=== PATIENT | male | born 1955 | race Caucasian/White ===

== ENCOUNTER → 2019-08-27 12:52 | Outpatient (CLI) | payer OTHER, SELFPAY ==
--- NOTE | 2019-08-27 12:56 | DI.RAD.S_ITS ---
PROCEDURE: XR KNEE RT 3V INDICATIONS: Knee pain TECHNIQUE: 3 views of the knee were acquired. COMPARISON: [facility], , KNEE 1-2 VIEWS RIGHT, 07/24/2008, 10:18. FINDINGS: Bones: No fractures or dislocations. No suspicious bony lesions. Scattered degenerative subchondral sclerosis and spurring. There mild-moderate narrowing of the medial joint space. Small joint effusion IMPRESSION: Mild-moderate joint degeneration, progressed since 07/24/08. Small joint effusion Dictated by: Sarbjit Bravo M.D. on 08/27/2019 at 16:25 Approved by: Sarbjit Bravo M.D. on 08/27/2019 at 16:31
== END ==
PROVIDERS: Family Provider Family Medicine; PCP Family Medicine; Referring Provider Family Medicine; Visit Provider Family Medicine
DX: M25.561 Pain in right knee (principal); M17.11 Unilateral primary osteoarthritis, right knee; M25.461 Effusion, right knee
CPT/HCPCS: 73562

== ENCOUNTER 2020-06-16 15:15 | Emergency (ER) | payer MEDICARE, SELFPAY ==
[2020-06-16 15:17] VITALS: BP 141/100; PULSE 103; RESP 22; TEMP 36.4; O2SAT 99
--- NOTE | 2020-06-16 17:53 | PC.NURSE ---
Pt reports infested with fleas x 1 month and thinks he obtained them from his animals. Saw Dr Flores recently and [employer] at [facility] and given prometherin cream and used full body x 2. states larvae is hatching from his skin, he has witnessed it, and it crawls out of his nose and into his eyeballs into his tear ducts and its very annoying noted to have multiple small pinpoint red bites on his abdomen. states he has been using hydrocortisone cream for the topical discomfort
--- NOTE | 2020-06-16 18:17 | ED_ITS ---
HPI - Skin/Abscess/Foreign Bdy General Chief complaint: Skin/Abscess/Foreign Body Stated complaint: INFESTED IN FLEAS Time Seen by Provider: 06/16/20 18:00 Source: patient Mode of arrival: Ambulatory Limitations: no limitations History of Present Illness HPI narrative: Patient is a 65-year-old male who is here stating that he is infested with he thinks are fleas. Has seen 2 different providers in the past. Has a prescription for permethrin cream given by his primary doctor. He states he was not actually seen by his primary doctor. This was after a telephone call. He denies any fevers. He states that he feels like they are crawling out of his skin. He has been able to pick them out. He has looked abdomen to the microscope states he has seen large of a crawling out of aches. He feels like that they are in his sinuses, crawling into his eyes and into his nose. Has been using topical hydrocortisone cream for the discomfort. He states there was of referral placed for him for Dermatology but there were ?issues ?with this. He thinks that they have now been sorted out knees yet to see a manager media relations. Related Data Home Medications Medication Instructions Recorded Confirmed diclofenac sodium 1 % topical gel TOP #100 gram 12/06/18 05/31/20 fluticasone propionate 50 1 spray INTRANASAL . NEEDED ml 10/03/19 05/31/20 mcg/actuation nasal spray,suspension Previous Rx's Medication Instructions Recorded disabled parking permit #1 each 08/29/19 ondansetron HCl 4 mg tablet 4 mg PO Q6H PRN #20 tab 04/03/20 permethrin 5 % topical cream 1 applic TOPICAL Q14D #60 g 05/31/20 lorazepam 0.5 mg tablet 0.5 mg PO BID PRN #60 tab 06/02/20 pantoprazole 40 mg tablet,delayed 40 mg PO BID #60 tab 06/12/20 release duloxetine 60 mg capsule,delayed See Rx Instructions .ROUTE 06/16/20 release .COMPLEX #90 cap gabapentin 600 mg tablet 1,200 mg PO TID #180 tab 06/16/20 simvastatin 20 mg tablet 20 mg PO HS #90 tab 06/16/20 Allergies Allergy/AdvReac Type Severity Reaction Status Date / Time No Known Drug Allergies Allergy Verified 05/31/20 10:08 Review of Systems Constitutional Constitutional: Denies fever(s) and Denies headache(s) ENT Ears, Nose, Mouth, and Throat: Denies headache(s) Respiratory Respiratory: Denies cough Integumentary/Breasts Skin/Breast: Reports pruritus, Reports lesions and Reports rash Neurologic Neurologic: Denies headache(s) Hematologic/Lymphatic Hematologic/Lymphatic: Denies easy bleeding and Denies easy bruising Allergic/Immunologic Allergic/Immunologic: Denies urticaria Patient History Medical History Arthritis pain, shoulder Hyperlipidemia Interstitial cystitis (1993) Rosacea Status post herniorrhaphy (2013) Surgical History History of left inguinal hernia repair (2012) Infected hernioplasty mesh (2013) Status post arthroscopy (2009) Family History Mother Hyperlipidemia Social History Smoking Status: Former smoker Smoking Status: Former smoker Exam Initial Vital Signs Initial Vital Signs: Vital Signs Temperature 97.5 F L 06/16/20 15:17 Pulse Rate 103 H 06/16/20 15:17 Respiratory Rate 22 06/16/20 15:17 Blood Pressure 141/100 H 06/16/20 15:17 Pulse Oximetry 99 06/16/20 15:17 Const General: cooperative, comfortable and well developed Limitations: mental status not altered HENHI Head: normal to inspection and normocephalic Resp Effort & Inspection: normal respiratory effort Skin Other: There were no parasites/bugs/fleas/scabies noted on his exam today. He does have some very superficial ulcerations on his abdomen that look very much like he has been picking at his skin. Extrem General: normal to inspection and capillary refill normal Psych Appearance: grossly normal and well kempt Course Vital Signs Vital signs: Vital Signs - 8 hr 06/16/20 15:17 06/16/20 18:23 Temperature 97.5 F L Pulse Rate 103 H 94 H Respiratory Rate 22 16 Blood Pressure 141/100 H 144/97 H Pulse Oximetry 99 97 MDM - Skin/Abscess/Foreign Bdy MDM Narrative Medical decision making narrative: I do not see any specific infestations today on his skin exam. I did tell him this. I did give him a specimen cup so that if he collects or sees any samples that he should put it in the cup so he can take it to the manager media relations. I informed him that he needs to contact the manager media relations for a follow-up and that no further workup here in the emergency department as necessary. Was given return precautions and follow-up instructions. He expressed understanding and agreement. Discharge Plan Departure Patient Disposition: Home Clinical Impression: Normal exam Instructions: How to Perform a Skin Exam Activity Restrictions/Additional Instructions: I did not find any parasites on your skin today. I recommend that you collect sample has in a specimen cup and either take them to your primary doctor's office or your manager media relations and have them evaluated in a lab. You can take Benadryl or use topical steroids for any itching or discomfort. Prescriptions: No Action permethrin 5 % cream 1 applic topical Q14D Qty: 60 RF: 0 (DME) disabled parking permit See Rx Instructions .ROUTE .MEDSUPPLY Qty: 1 RF: 0 ondansetron HCl [Zofran] 4 mg tablet 4 mg PO Q6H PRN (Reason: nausea and vomiting) Qty: 20 RF: 0 lorazepam 0.5 mg tablet 0.5 mg PO BID PRN (Reason: itching) Qty: 60 RF: 0 pantoprazole [Protonix] 40 mg tablet,delayed release (DR/EC) 40 mg PO BID Qty: 60 RF: 11 duloxetine 60 mg capsule,delayed release(DR/EC) See Rx Instructions .ROUTE .COMPLEX Qty: 90 RF: 3 simvastatin [Zocor] 20 mg tablet 20 mg PO HS Qty: 90 RF: 3 gabapentin 600 mg tablet 1,200 mg PO TID Qty: 180 RF: 2 diclofenac sodium 1 % gel TOP Qty: 100 RF: 0 fluticasone propionate 50 mcg/actuation spray,suspension 1 spray Intranasal . NEEDED RF: 0 Referrals: Sandeep Flores MD [Primary Care Provider] -
[2020-06-16 18:23] VITALS: BP 144/97; PULSE 94; RESP 16; O2SAT 97
== END 2020-06-16 18:39 | disposition home or self-care (01) ==
PROVIDERS: Emergency Provider Emergency Medicine; Family Provider Family Medicine; PCP Family Medicine
DX: R21 Rash and other nonspecific skin eruption (principal)
CPT/HCPCS: 99281

== ENCOUNTER → 2020-07-28 14:29 | Outpatient (CLI) | payer MEDICARE, SELFPAY ==
[2020-07-28 17:31] LABS: Blood Urea Nitrogen 26 mg/dL (9-20); Estimated Glomerular Filt Rate > 60.0 mL/min (>60)
== END ==
PROVIDERS: Family Provider Family Medicine; PCP Family Medicine; Referring Provider Family Medicine; Visit Provider Family Medicine
DX: Z87.19 Personal history of other diseases of the digestive system (principal); Z98.890 Other specified postprocedural states
CPT/HCPCS: 36415; 82565; 84520

== ENCOUNTER → 2020-07-30 11:40 | Outpatient (CLI) | payer MEDICARE, SELFPAY ==
--- NOTE | 2020-07-30 11:44 | DI.CT.S_ITS ---
PROCEDURE: CT ABDOMEN PELVIS W CON INDICATIONS: Progressive left inguinal and pelvic pain TECHNIQUE: After the administration of intravenous contrast, 5 mm thick sections acquired from the diaphragms to the symphysis. 2.5 mm thick coronal and sagittal reformats were acquired. Optional 10-minute delayed imaging may be performed from the kidneys to the bladder. For radiation dose reduction, the following was used: automated exposure control, adjustment of mA and/or kV according to patient size. COMPARISON: CT, PELVIS WITH CONTRAST, 05/30/2013, 9:54. FINDINGS: Image quality: Excellent. ABDOMEN: Lung bases: Lung bases are clear. Heart size is normal. No pericardial effusion. Inferior ribs are intact. No basal pleural effusions or pneumothorax. Solid organs: Hepatic steatosis. Liver is normal in size and enhancement, without lacerations. Gallbladder is normal. Biliary system is non-dilated. Pancreas enhances normally, without transection. Spleen is normal in size and enhancement, without lacerations. No adrenal hematomas. Both kidneys enhance normally, without hydronephrosis or lacerations. Peritoneum and bowel: No free fluid or air. There are scattered colonic diverticula. No CT findings to suggest acute diverticulitis. Unenhanced bowel loops demonstrate normal wall thickness and caliber. Nodes and vessels: No retroperitoneal or mesenteric adenopathy. Aorta and inferior vena cava are normal in size and enhancement. Miscellaneous: No ventral hernias. PELVIS: Genitourinary: Bladder wall thickness is normal. Miscellaneous: No inguinal adenopathy. Surgical clips in the left groin are likely related to left inguinal hernia repair. There is a fat containing right inguinal hernia. Bones: Pelvic ring and hip joints appear intact. No vertebral compression fractures. Degenerative changes in lumbar spine. IMPRESSION: 1. Postsurgical changes in the left groin, presumably related to left inguinal hernia repair. No recurrent left inguinal hernia. 2. Fat containing right inguinal hernia. 3. Diverticulosis without acute diverticulitis. 4. Hepatic steatosis. Dictated by: Fantasma Rodriguez M.D. on 07/30/2020 at 13:13 Approved by: Fantasma Rodriguez M.D. on 07/30/2020 at 18:00
== END ==
PROVIDERS: Family Provider Family Medicine; PCP Family Medicine; Referring Provider Family Medicine; Visit Provider Family Medicine
DX: R10.2 Pelvic and perineal pain (principal); K40.90 Unilateral inguinal hernia, without obstruction or gangrene, not specified as recurrent; K76.0 Fatty (change of) liver, not elsewhere classified; K57.90 Diverticulosis of intestine, part unspecified, without perforation or abscess without bleeding; Z98.890 Other specified postprocedural states; Z87.19 Personal history of other diseases of the digestive system
CPT/HCPCS: 74177; Q9967

== ENCOUNTER → 2021-09-10 15:34 | Outpatient (CLI) | payer MEDICARE, SELFPAY ==
[2021-09-10 16:08] LABS: COVID19 -Nasal RAPID Negative (Negative)
== END ==
PROVIDERS: Family Provider Family Medicine; PCP Family Medicine; Visit Provider Registered Nurse Diabetes Educator
DX: Z20.822 Contact with and (suspected) exposure to COVID-19 (principal); R11.0 Nausea
CPT/HCPCS: 87635

== ENCOUNTER → 2021-09-11 15:56 | Outpatient (CLI) | payer MEDICARE, SELFPAY ==
[2021-09-11 17:01] LABS: Add Manual Diff / Slide Review NO; Basophils Absolute Auto 0 /uL (0-100); Basophils Percent Auto 0.8 % (0-2); Eosinophils Absolute Auto 100 /uL (0-450); Hematocrit 45.6 % (41-53); Hemoglobin 15.3 g/dL (13.5-17.5); Lymphocytes Absolute Auto 1800 /uL (1100-4500); Lymphocytes Percent Auto 30.8 % (25-40); Mean Corpuscular HGB Conc 33.5 % (30-36); Mean Corpuscular Hemoglobin 30.2 PG (26-34); Mean Corpuscular Volume 90.1 fL (80-100); Monocytes Absolute Auto 400 /uL (0-900); Neutrophils Absolute Auto 3400 /uL (1500-7000); Neutrophils Percent Auto 59.4 % (50-75); Platelet Count 314 X10^3/uL (150-400); Red Blood Cell Count 5.06 X10^6/uL (4.5-5.9); Red Cell Distribution Width 13.2 % (11.6-14.8); White Blood Cell Count 5.7 X10^3/uL (4.5-11.0)
[2021-09-11 17:13] LABS: Alanine Aminotransferase 31 IU/L (<50); Albumin 4.6 g/dL (3.5-5.0); Albumin Globulin Ratio 1.5 (1.0-2.8); Alkaline Phosphatase 60 U/L (38-126); Amylase 108 U/L (30-110); Aspartate Aminotransferase 23 IU/L (17-59); Bilirubin Total 0.4 mg/dL (0.2-1.3); Blood Urea Nitrogen 18 mg/dL (9-20); Calcium 9.3 mg/dL (8.4-10.2); Carbon Dioxide 27 mmol/L (22-32); Chloride 104 mmol/L (98-107); Estimated Glomerular Filt Rate 51.9 mL/min (>60); Globulin 3.1 g/dL (1.7-4.1); Glucose 123 mg/dL (80-110); HEMOLYSIS < 15 (0-50); Lipase 245 U/L (23-300); Sodium 139 mmol/L (137-145); Total Protein 7.7 g/dL (6.3-8.2)
[2021-09-15 10:07] LABS: Interpretation Negative (Negative)
== END ==
PROVIDERS: Family Provider Family Medicine; PCP Family Medicine; Referring Provider Registered Nurse Diabetes Educator; Visit Provider Registered Nurse Diabetes Educator
DX: R10.9 Unspecified abdominal pain (principal); R10.13 Epigastric pain
CPT/HCPCS: 36415; 80053; 82150; 83013; 83690; 85025

== ENCOUNTER → 2021-09-12 12:10 | Outpatient (CLI) | payer MEDICARE, SELFPAY ==
[2021-09-12 13:57] LABS: Appearance Urine UA CLEAR; Bilirubin Urine UA NEGATIVE (NEGATIVE); Color Urine UA YELLOW; Glucose Urine UA NEGATIVE (Negative); Ketones Urine UA NEGATIVE (NEGATIVE); Leukocyte Esterase Urine UA NEGATIVE (NEGATIVE); Nitrite Urine UA NEGATIVE (Negative); Occult Blood Urine UA 1+ (Negative); Protein Urine UA TRACE (Negative); Specific Gravity Urine UA >=1.030 (1.000-1.035); Urobilinogen Urine UA 0.2 E.U./dL (0.2); pH Urine UA 5.5 (4.5-8.0)
[2021-09-12 14:14] LABS: Bacteria Urine Few (2-10); Culture Indicated Urine Specimen Cultured; RBC Urine 0-1/HPF (0-5/HPF); WBC Urine 5-10/HPF (0-5/HPF)
== END ==
PROVIDERS: Family Provider Family Medicine; PCP Family Medicine; Referring Provider Registered Nurse Diabetes Educator; Visit Provider Registered Nurse Diabetes Educator
DX: R10.9 Unspecified abdominal pain (principal); R11.0 Nausea
CPT/HCPCS: 81001; 87045; 87086; 87177; 87899

== ENCOUNTER → 2021-09-28 15:25 | Outpatient (CLI) | payer MEDICARE, SELFPAY ==
[2021-09-28 17:01] LABS: Appearance Urine UA CLEAR; Bilirubin Urine UA NEGATIVE (NEGATIVE); Color Urine UA YELLOW; Glucose Urine UA NEGATIVE (Negative); Ketones Urine UA NEGATIVE (NEGATIVE); Leukocyte Esterase Urine UA NEGATIVE (NEGATIVE); Nitrite Urine UA NEGATIVE (Negative); Occult Blood Urine UA TRACE-INTACT (Negative); Protein Urine UA NEGATIVE (Negative); Urobilinogen Urine UA 0.2 E.U./dL (0.2); pH Urine UA 5.5 (4.5-8.0)
[2021-09-28 17:26] LABS: BUN Creatinine Ratio 18.5 (6-22); Blood Urea Nitrogen 17 mg/dL (9-20); Calcium 9.2 mg/dL (8.4-10.2); Carbon Dioxide 25 mmol/L (22-32); Chloride 105 mmol/L (98-107); Estimated Glomerular Filt Rate > 60.0 mL/min (>60); Glucose 101 mg/dL (80-110); HEMOLYSIS < 15 (0-50); Potassium 3.6 mmol/L (3.4-5.1); Sodium 137 mmol/L (137-145)
[2021-09-28 17:32] LABS: RBC Urine 0-1/HPF (0-5/HPF); WBC Urine 0-1/HPF (0-5/HPF)
[2021-09-28 17:33] LABS: Bacteria Urine None Seen; Culture Indicated Urine Cult Not Indicated; Squamous Epithelial Cell Urine None Seen (0-5/HPF)
== END ==
PROVIDERS: Family Provider Family Medicine; PCP Family Medicine; Referring Provider Registered Nurse Diabetes Educator; Visit Provider Registered Nurse Diabetes Educator
DX: N39.0 Urinary tract infection, site not specified (principal); R94.4 Abnormal results of kidney function studies
CPT/HCPCS: 36415; 80048; 81001

== ENCOUNTER → 2022-07-30 17:49 | Outpatient (CLI) | payer MEDICARE, SELFPAY ==
[2022-07-30 18:10] LABS: D Dimer 275 ng/ml (<500)
[2022-07-30 18:11] LABS: Creatine Kinase 47 U/L (55-170)
[2022-07-30 18:24] LABS: Troponin I < 0.012 ng/mL (0.01-0.034)
== END ==
PROVIDERS: Family Provider Family Medicine; PCP Family Medicine; Referring Provider Student in an Organized Health Care Education/Training Program; Visit Provider Student in an Organized Health Care Education/Training Program
DX: M25.511 Pain in right shoulder (principal)
CPT/HCPCS: 36415; 82550; 84484; 85379

== ENCOUNTER → 2023-07-01 14:34 | Outpatient (CLI) | payer OTHER, SELFPAY | PROVIDERS: Family Provider Family Medicine; PCP Family Medicine; Referring Provider Podiatrist; Visit Provider Podiatrist | DX: Z01.818 Encounter for other preprocedural examination (principal) | CPT/HCPCS: 93005 ==

== ENCOUNTER 2023-09-09 13:53 | Emergency (ER) | payer MEDICARE, OTHER, SELFPAY ==
[2023-09-09 13:56] VITALS: BP 153/68; PULSE 82; RESP 18; TEMP 36.9; O2SAT 97; BMI 28.1
--- NOTE | 2023-09-09 14:23 | ED_ITS ---
<Statement entered by Mega Rangel MD - 10/01/23 08:17> Case was discussed at the time of care, I agree with the above documentation and plan HPI - Recheck/Abnormal Lab/Rx General Chief Complaint: Recheck/Abnormal Lab/Rx Stated Complaint: L elbow surgery infected, swelling Time Seen by Provider: 09/09/23 14:23 Source: patient Mode of arrival: Ambulatory History of Present Illness HPI narrative: Patient is a 63-year-old male presenting for evaluation of left arm swelling x2 days. He reports that he received tunnel release surgery in his left elbow on August [address] Leonard of [facility]. He states that he subsequently went down to [facility] by an RV and on the road trip [place], he experienced increased swelling and pain in his left elbow. He was admitted for emergency surgery at [facility] in [place], [place]. He has brought in his discharge summary which indicates his surgical site was irrigated and he received IV vancomycin and IV Zosyn to treat Serratia marcescens and staph infection. Cultures of antibiotics showed sensitivity to Bactrim DS and patient was prescribed Bactrim for the next 2 weeks with planned follow up with Dr. Leonard on 09/11. He was discharged on 09/04. He is presenting today to the ER because yesterday he noticed increased swelling and pain in his left elbow. He reports he has been changing the dressing daily or twice daily in his has been keeping it in a splint. He denies any sensation of body aches, chills, shortness of breath, no chest pain. He endorses increased cramping in his legs and hands. 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 Related Data Home Medications Medication Instructions Recorded Confirmed diclofenac sodium 1 % topical gel topical #100 grams 12/06/18 07/11/23 hydroxyzine HCl 10 mg tablet 10 mg PO 07/11/20 07/11/23 Previous Rx's Medication Instructions Recorded Disabled Parking Permit #1 ea 08/04/20 duloxetine 30 mg capsule,delayed 30 mg PO DAILY #90 caps 05/24/23 release duloxetine 60 mg capsule,delayed 60 mg PO DAILY #90 caps 05/24/23 release gabapentin 600 mg tablet See Rx Instructions .Route 07/18/23 .COMPLEX #360 tabs pantoprazole 40 mg tablet,delayed 40 mg PO BID #60 tabs 07/18/23 release (Protonix) simvastatin 20 mg tablet (Zocor) 20 mg PO HS #90 tabs 07/18/23 cephalexin 500 mg capsule 500 mg PO QID 7 days #28 caps 09/09/23 Allergies Allergy/AdvReac Type Severity Reaction Status Date / Time No Known Drug Allergies Allergy Verified 07/11/23 14:45 Patient History Medical History (Updated 09/09/23 @ 17:50 by Sherrell Johnston PA-C) Osteoarthritis of right knee Right shoulder strain Overlapping toe, acquired Dupuytren contracture Olfactory hallucinations Diverticulosis Anxiety Rosacea Interstitial cystitis (1993) Status post herniorrhaphy (2013) Arthritis pain, shoulder Hyperlipidemia Surgical History Infected hernioplasty mesh (2013) History of left inguinal hernia repair (2012) Status post arthroscopy (2009) Family History Mother Hyperlipidemia Social History Smoking Status: Former smoker Smoking Status: Former smoker Exam Initial Vital Signs Initial Vital Signs: Vital Signs Temperature 98.5 F 09/09/23 13:56 Pulse Rate 82 09/09/23 13:56 Respiratory Rate 18 09/09/23 13:56 Blood Pressure 153/68 H 09/09/23 13:56 Pulse Oximetry 97 09/09/23 13:56 Oxygen Delivery Method Room Air 09/09/23 13:56 GENERAL: 68 year old patient appears stated age. Well-developed patient, in no acute distress. HEAD: Atraumatic. Normocephalic. EYES: Pupils equal round bilaterally NECK: Trachea midline. Non tender. CARDIOVASCULAR: Regular rate and rhythm without murmurs, gallops, or rubs. RESPIRATORY: Clear to auscultation. Breath sounds equal bilaterally. No wheezes, rales, or rhonchi. EXTREMITIES: Left arm in splint, surgical incision site present with no evidence of purulent discharge, left elbow does appear to have some erythema and swelling noted, there is some induration as well noted along patient's medial bicep, there is extensive bruising along patient's medial left arm, he demonstrates appropriate circulation sensation and movement of fingers and left radialis pulses 2+. 2+ posterior tibialis pulse bilaterally, no lower extremity edema noted bilaterally, left leg and extension at the hip due to chronic condition NEURO: AOx3. SKIN: No rash or erythema of visible areas Course Orders Ordered: ED Orders 09/09/23 14:45 US periph venous up extrem lt Stat 09/09/23 15:00 CBC Auto Diff [Complete Blood Count AUTO DIFF] Stat CMP [Comprehensive Metabolic Panel] Stat Lactate (Lactic Acid) Stat 09/09/23 15:13 XR elbow LT min 3V Stat Vital Signs Vital signs: Vital Signs - 8 hr 09/09/23 13:56 Temperature 98.5 F Pulse Rate 82 Respiratory Rate 18 Blood Pressure 153/68 H Pulse Oximetry 97 Oxygen Delivery Method Room Air MDM - Recheck/Abnormal Lab/Rx Lab Data 09/09/23 15:00 09/09/23 15:00 Labs: Lab Results 09/09/23 Range/Units 15:00 WBC 6.7 (4.5-11.0) X10^3/uL RBC 3.61 L (4.5-5.9) X10^6/uL Hgb 10.9 L (13.5-17.5) g/dL Hct 31.8 L (41-53) % MCV 88.0 (80-100) fL MCH 30.3 (26-34) PG MCHC 34.4 (30-36) % RDW 13.6 (11.6-14.8) % Plt Count 372 (150-400) X10^3/uL Neut % (Auto) 58.4 (50-75) % Lymph % (Auto) 27.3 (25-40) % [place] % (Auto) 10.3 (3-14) % Eos % (Auto) 3.0 (2-4) % Baso % (Auto) 1.0 (0-2) % Neut # (Auto) 3900 (0118-2836) /uL Lymph # (Auto) 1800 (4636-4592) /uL [place] # (Auto) 700 (0-900) /uL Eos # (Auto) 200 (0-450) /uL Baso # (Auto) 100 (0-100) /uL Sodium 137 (137-145) mmol/L Potassium 3.8 (3.4-5.1) mmol/L Chloride 108 H (98-107) mmol/L Carbon Dioxide 21 L (22-32) mmol/L BUN 22 H (9-20) mg/dL Creatinine 1.07 (0.66-1.25) mg/dL Estimated GFR > 60 (>60) mL/min BUN/Creatinine Ratio 20.6 (6-22) Glucose 113 H (80-110) mg/dL Lactate 0.8 (0.7-2.1) mmol/L Calcium 8.8 (8.4-10.2) mg/dL Total Bilirubin 0.5 (0.2-1.3) mg/dL AST 30 (17-59) IU/L ALT 38 (<50) IU/L Alkaline Phosphatase 80 (38-126) U/L Total Protein 7.2 (6.3-8.2) g/dL Albumin 4.0 (3.5-5.0) g/dL Globulin 3.2 (1.7-4.1) g/dL Albumin/Globulin Ratio 1.3 (1.0-2.8) Urine Dip Bedside Urine Glucose Negative Bedside Urine Bilirubin - Negative Bedside Urine Ketone - Negative Urine Specific [place] 1.030 Bedside Urine Occult Blood - Negative Bedside Urine pH 6.0 Bedside Urine Protein +/- 15 Bedside Urine Nitrite - Negative Bedside Urine Leukocytes - Negative Esterase Imaging Data Elbow x-ray: Radiologist's Impression: PROCEDURE: XR ELBOW LT MIN 3V INDICATIONS: left elbow pain and swelling after surgery 08/17 TECHNIQUE: 4 views of the elbow were acquired. COMPARISON: None. FINDINGS: Bones: No fractures or dislocations. No suspicious bony lesions. Moderate osteoarthritis is seen at the left elbow involving all articular surfaces. Soft tissues: No elbow joint effusion. No suspicious soft tissue calcifications. IMPRESSION: No acute bony abnormality or significant joint effusion. Generalized moderate osteoarthritis. Dictated by: Raymon Cantu M.D. on 09/09/2023 at 15:48 Approved by: Raymon Cantu M.D. on 09/09/2023 at 15:49 Peripheral vascular US LT EXTR: Radiologist's Impression: PROCEDURE: US PERIPH VENOUS UP EXTREM LT INDICATIONS: Swelling of left elbow after surgery 08/17 TECHNIQUE: Real-time imaging, as well as color and pulse Doppler interrogation, was performed of the upper extremity deep veins from the inferior neck to the antecubital fossa. COMPARISON: None. FINDINGS: The internal jugular vein, visualized portions of the subclavian vein, axillary, and brachial veins are free of intraluminal thrombus. Where physically possible, the veins are normally compressible. Color and pulse Doppler demonstrate normal intraluminal flow, with expected phasicity and pulsatility. Additional scanning of the cephalic and basilic veins of the superficial system demonstrates normal compressibility, without thrombus. There is a heterogeneous fluid collection measuring 10.9 x 3 x 5.3 centimeters. IMPRESSION: No findings of upper extremity deep venous thrombosis can be seen. Heterogeneous likely postoperative fluid is seen at the area of interest measuring 10.9 x 3 x 5.3 centimeters. Sterility is indeterminate on imaging. Dictated by: Swapnil Ramos M.D. on 09/09/2023 at 16:58 Approved by: Swapnil Ramos M.D. on 09/09/2023 at 17:00 [facility] Narrative Medical decision making narrative: Patient is a 68-year-old male presenting for evaluation of left elbow swelling and pain worsening over the last day. He had tunnel release surgery with Dr. Leonard of [facility] on August 17 and had a subsequent surgical infection of Serratia marcescens and Staph which was treated with emergency surgery and IV antibiotics at at [facility] in [place], [place] with discharge on September 04 taking Bactrim by mouth. He denies chest pain or shortness of Breath body aches or chills, but is endorsing increased pain and swelling in his left elbow today. Discussed case with Dr. Rangel and will proceed with ultrasound of left arm, plain films of left elbow, CBC CMP and lactate. Multiple etiologies for patient's symptoms considered including, but not limited to: DVT, postsurgical infection. Prior Charts reviewed: Reviewed discharge instructions from [facility] as well as hospital to reports from patient's stay at [facility]. Labs reviewed and interpreted by myself: CBC, CMP and lactate. No elevated white count noted, CMP is within normal limits, no elevation of lactate. Imaging reviewed: X-ray of elbow showed no joint effusion or soft tissue calcifications and will positive for osteoarthritis, ultrasound did not show evidence of DVT. Impression reported a heterogenous likely postop fluid seen at the area of interest measuring 10.9 x 3 x 5.3 cm [address]iscuss[address] findings with Dr. Rangel, patient's lab work and imaging is reassuring. No evidence in labwork of infection, no evidence of clot seen on imaging of upper extremity. Recommend adding on Keflex 500 mg q.i.d. and continued follow up with Dr. Leonard on Tuesday as planned. Findings and discharge diagnosis discussed with patient/family followed by verbalization of understanding Return precautions discussed with patient/family whom verbalize understanding of diagnosis and plan Discharge Plan Departure Patient Disposition: Home Clinical Impression: Swelling of joint, elbow, left Surgical complication Qualifiers: Surgical complication system/body Area: musculoskeletal system Surgical complication type: unspecified Timing of complication: postoperative complication Procedure type: musculoskeletal Qualified Code(s): M96.89 - Other intraoperative and postprocedural complications and disorders of the musculoskeletal system Activity Restrictions/Additional Instructions: Thank you for coming in today for your care. We evaluated increased swelling and tenderness noted around her left elbow which was operated on on 08/17 as well as last week due to secondary infection. Lab work today was reassuring and did not indicate any sign of infection. There was no indication of return of surgical site cellulitis. Ultrasound did not show any evidence of clot in your left arm. X-ray did not show any concerning findings. Please continue dressing changes daily and follow up as planned with Dr. Leonard. I recommend in addition to Bactrim, that you start Keflex for wider coverage. Please follow up in the emergency department promptly if you should develop any increased pain, significant swelling, drainage, body aches chills or other concerning signs or symptoms. It was a pleasure meeting you today. *What to do: *Please continue to take your regular medications as directed. [x ] New medication prescriptions sent to your pharmacy: [facility] [ ] New medication written as a paper prescription [ ] No new medications given *Please follow up with your primary care provider in 2-3 days, call for an appointment. Let them know you were seen in the Emergency Department and that we ask that you be seen in follow up. We will electronically transmit a record of today's note if your PCP is in our system *If you do not have a primary care provider please contact the [facility] Resource line at [phone]. They will ask some questions about your medical history and help get you set up with a doctor in the community. *Return to Emergency Department if you should have any new, worsening or concerning symptoms, such as [fever greater than 101 F, shaking chills, worsening pain, persistent vomiting or other bothersome symptoms] Prescriptions: New cephalexin 500 mg capsule 500 mg PO QID 7 Days Qty: 28 0RF No Action (DME) Disabled Parking Permit See Rx Instructions .ROUTE .MEDSUPPLY Qty: 1 0RF Rx Instructions: Valid for 5 years duloxetine 60 mg capsule,delayed release(DR/EC) 60 mg PO DAILY Qty: 90 1RF duloxetine 30 mg capsule,delayed release(DR/EC) 30 mg PO DAILY Qty: 90 1RF gabapentin 600 mg tablet See Rx Instructions .ROUTE .COMPLEX Qty: 360 2RF Dose Instruction: TAKE 2 TABLETS BY MOUTH THREE TIMES DAILY Rx Instructions: TAKE 2 TABLETS BY MOUTH THREE TIMES DAILY pantoprazole [Protonix] 40 mg tablet,delayed release (DR/EC) 40 mg PO BID Qty: 60 11RF Rx Instructions: Take one tablet by mouth twice a day. simvastatin [Zocor] 20 mg tablet 20 mg PO HS Qty: 90 2RF Rx Instructions: Take one tablet by mouth daily at bedtime. diclofenac sodium 1 % gel TOP Qty: 100 hydroxyzine HCl 10 mg tablet 10 mg PO Referrals: Minh Camejo, [Primary Care Provider] - Stand Alone Forms: Patient Portal/API
--- NOTE | 2023-09-09 14:45 | DI.US.S_ITS ---
PROCEDURE: US PERIPH VENOUS UP EXTREM LT INDICATIONS: Swelling of left elbow after surgery 08/17 TECHNIQUE: Real-time imaging, as well as color and pulse Doppler interrogation, was performed of the upper extremity deep veins from the inferior neck to the antecubital fossa. COMPARISON: None. FINDINGS: The internal jugular vein, visualized portions of the subclavian vein, axillary, and brachial veins are free of intraluminal thrombus. Where physically possible, the veins are normally compressible. Color and pulse Doppler demonstrate normal intraluminal flow, with expected phasicity and pulsatility. Additional scanning of the cephalic and basilic veins of the superficial system demonstrates normal compressibility, without thrombus. There is a heterogeneous fluid collection measuring 10.9 x 3 x 5.3 centimeters. IMPRESSION: No findings of upper extremity deep venous thrombosis can be seen. Heterogeneous likely postoperative fluid is seen at the area of interest measuring 10.9 x 3 x 5.3 centimeters. Sterility is indeterminate on imaging. Dictated by: Swapnil Ramos M.D. on 09/09/2023 at 16:58 Approved by: Swapnil Ramos M.D. on 09/09/2023 at 17:00
--- NOTE | 2023-09-09 15:13 | DI.RAD.S_ITS ---
PROCEDURE: XR ELBOW LT MIN 3V INDICATIONS: left elbow pain and swelling after surgery 08/17 TECHNIQUE: 4 views of the elbow were acquired. COMPARISON: None. FINDINGS: Bones: No fractures or dislocations. No suspicious bony lesions. Moderate osteoarthritis is seen at the left elbow involving all articular surfaces. Soft tissues: No elbow joint effusion. No suspicious soft tissue calcifications. IMPRESSION: No acute bony abnormality or significant joint effusion. Generalized moderate osteoarthritis. Dictated by: Raymon Cantu M.D. on 09/09/2023 at 15:48 Approved by: Raymon Cantu M.D. on 09/09/2023 at 15:49
[2023-09-09 15:28] LABS: Add Manual Diff / Slide Review NO; Basophils Absolute Auto 100 /uL (0-100); Eosinophils Absolute Auto 200 /uL (0-450); Hematocrit 31.8 % (41-53); Hemoglobin 10.9 g/dL (13.5-17.5); Lymphocytes Absolute Auto 1800 /uL (1100-4500); Lymphocytes Percent Auto 27.3 % (25-40); Mean Corpuscular HGB Conc 34.4 % (30-36); Mean Corpuscular Hemoglobin 30.3 PG (26-34); Monocytes Absolute Auto 700 /uL (0-900); Monocytes Percent Auto 10.3 % (3-14); Neutrophils Absolute Auto 3900 /uL (1500-7000); Neutrophils Percent Auto 58.4 % (50-75); Platelet Count 372 X10^3/uL (150-400); Red Blood Cell Count 3.61 X10^6/uL (4.5-5.9); Red Cell Distribution Width 13.6 % (11.6-14.8); White Blood Cell Count 6.7 X10^3/uL (4.5-11.0)
[2023-09-09 15:42] LABS: Lactate (Lactic Acid) 0.8 mmol/L (0.7-2.1)
[2023-09-09 15:43] LABS: Alanine Aminotransferase 38 IU/L (<50); Albumin Globulin Ratio 1.3 (1.0-2.8); Alkaline Phosphatase 80 U/L (38-126); Aspartate Aminotransferase 30 IU/L (17-59); BUN Creatinine Ratio 20.6 (6-22); Bilirubin Total 0.5 mg/dL (0.2-1.3); Blood Urea Nitrogen 22 mg/dL (9-20); Calcium 8.8 mg/dL (8.4-10.2); Carbon Dioxide 21 mmol/L (22-32); Chloride 108 mmol/L (98-107); Estimated Glomerular Filt Rate > 60 mL/min (>60); Globulin 3.2 g/dL (1.7-4.1); Glucose 113 mg/dL (80-110); HEMOLYSIS < 15 (0-50); Potassium 3.8 mmol/L (3.4-5.1); Sodium 137 mmol/L (137-145); Total Protein 7.2 g/dL (6.3-8.2)
== END 2023-09-09 18:02 | disposition home or self-care (01) ==
PROVIDERS: Emergency Provider Physician Assistant; Family Provider Family Medicine; PCP Family Medicine
DX: M25.422 Effusion, left elbow (principal); M96.89 Other intraoperative and postprocedural complications and disorders of the musculoskeletal system
CPT/HCPCS: 36415; 73080; 80053; 81003; 83605; 85025; 93971; 99284

== ENCOUNTER → 2024-08-30 11:45 | Outpatient (CLI) | payer MEDICARE, OTHER, SELFPAY ==
[2024-08-30 12:32] LABS: Add Manual Diff / Slide Review NO; Basophils Absolute Auto 0 /uL (0-100); Basophils Percent Auto 0.6 % (0-2); Eosinophils Absolute Auto 100 /uL (0-450); Eosinophils Percent Auto 2.3 % (2-4); Hematocrit 43.3 % (41-53); Hemoglobin 14.4 g/dL (13.5-17.5); Lymphocytes Absolute Auto 1500 /uL (1100-4500); Lymphocytes Percent Auto 34.5 % (25-40); Mean Corpuscular HGB Conc 33.3 % (30-36); Mean Corpuscular Hemoglobin 30.4 PG (26-34); Mean Corpuscular Volume 91.4 fL (80-100); Monocytes Absolute Auto 400 /uL (0-900); Monocytes Percent Auto 8.5 % (3-14); Neutrophils Absolute Auto 2400 /uL (1500-7000); Neutrophils Percent Auto 54.1 % (50-75); Platelet Count 274 X10^3/uL (150-400); Red Blood Cell Count 4.74 X10^6/uL (4.5-5.9); Red Cell Distribution Width 13.3 % (11.6-14.8); White Blood Cell Count 4.5 X10^3/uL (4.5-11.0)
[2024-08-30 12:41] LABS: Hemoglobin A1C% w Est Avg Glu 5.4 % (4.0-6.0)
[2024-08-30 12:51] LABS: HEMOLYSIS < 15 (0-50); Iron 96 ug/dL (49-181)
[2024-08-30 12:56] LABS: Alanine Aminotransferase 25 IU/L (<50); Albumin 4.5 g/dL (3.5-5.0); Albumin Globulin Ratio 1.6 (1.0-2.8); Alkaline Phosphatase 66 U/L (38-126); Aspartate Aminotransferase 25 IU/L (17-59); BUN Creatinine Ratio 22.2 (6-22); Bilirubin Total 0.6 mg/dL (0.2-1.3); Blood Urea Nitrogen 22 mg/dL (9-20); Calcium 9.3 mg/dL (8.4-10.2); Carbon Dioxide 28 mmol/L (22-32); Chloride 102 mmol/L (98-107); Estimated Glomerular Filt Rate > 60 mL/min (>60); Globulin 2.8 g/dL (1.7-4.1); Glucose 101 mg/dL (80-110); HEMOLYSIS < 15 (0-50); Potassium 4.4 mmol/L (3.4-5.1); Sodium 138 mmol/L (137-145); Total Protein 7.3 g/dL (6.3-8.2)
[2024-08-30 13:03] LABS: Percent Iron Saturation 31 % (20-50); Total Iron Binding Capacity 314 ug/dL (261-462); Transferrin 295 mg/dL (206-381)
[2024-08-30 13:23] LABS: TSH w/ Reflex to FT4 0.92 uIU/mL (0.47-4.68)
[2024-08-30 13:44] LABS: Vitamin B12 358 pg/mL (239-931)
== END ==
LOC: LAB 11:46
PROVIDERS: Family Provider Family Medicine; PCP Family Medicine; Referring Provider Family Medicine; Visit Provider Family Medicine
DX: E78.00 Pure hypercholesterolemia, unspecified (principal); K21.9 Gastro-esophageal reflux disease without esophagitis; F41.8 Other specified anxiety disorders; R53.83 Other fatigue; F41.9 Anxiety disorder, unspecified
CPT/HCPCS: 36415; 80053; 82607; 83036; 83540; 83550; 84402; 84403; 84443; 85025

== ENCOUNTER 2024-11-30 15:33 | Emergency (ER) | payer MEDICARE, OTHER, SELFPAY ==
[2024-11-30 15:41] VITALS: BP 142/82; PULSE 56; RESP 17; TEMP 36.6; O2SAT 96; BMI 25.8
[2024-11-30 22:19] VITALS: O2SAT 97
[2024-11-30 22:27] VITALS: BP 143/88; PULSE 60; O2SAT 97
[2024-11-30 22:30] VITALS: RESP 16; O2SAT 97
[2024-11-30 23:00] VITALS: BP 156/78; PULSE 59; O2SAT 96
[2024-11-30 23:30] VITALS: PULSE 74
--- NOTE | 2024-11-30 23:51 | ED.WOUNDLAC ---
HPI - Wound/Laceration General Chief Complaint: Wound/Laceration Stated Complaint: left finger injury Time Seen by Provider: 11/30/24 23:40 Source: patient, RN notes reviewed and old records reviewed Mode of arrival: Ambulatory Limitations: no limitations History of Present Illness HPI narrative: 69-year-old male with injury to his left ring finger with. Patient states has a little bit deep might have gotten close to the bone. He states pain is well controlled. He denies any numbness or tingling. States he was full range of motion. States he was had similar injuries in the past. He denies any other injuries. States he takes gabapentin and pantoprazole daily. No known drug allergies. He was unsure of his last tetanus. He denies any anticoagulants. Related Data Previous Rx's ?Medication ?Instructions ?Recorded gabapentin 600 mg tablet See Rx Instructions .Route 07/03/24 .COMPLEX #360 tabs pantoprazole 40 mg tablet,delayed 40 mg PO BID #60 tabs 08/30/24 release (Protonix) Allergies Allergy/AdvReac Type Severity Reaction Status Date / Time No Known Drug Allergies Allergy Verified 11/30/24 15:48 Review of Systems Review of Systems ROS Unobtainable: All systems reviewed & are unremarkable except as noted in HPI and below Patient History Medical History Fatigue Osteoarthritis of right knee Right shoulder strain Overlapping toe, acquired Dupuytren contracture Olfactory hallucinations Diverticulosis Anxiety Rosacea Interstitial cystitis (1993) Status post herniorrhaphy (2013) Arthritis pain, shoulder Hyperlipidemia Surgical History Infected hernioplasty mesh (2013) History of left inguinal hernia repair (2012) Status post arthroscopy (2009) Family History Mother Hyperlipidemia Social History Smoking Status: Current every day smoker Smoking Status: Current every day smoker tobacco type: vaping Exam Narrative Exam Narrative: GENERAL: Alert and oriented x three, male in mild distress HEENT: Head normocephalic, atraumatic, EOMI, pupils reactive, face symmetric, moist mucous membranes NECK: Supple, full range of motion CARDIOVASCULAR: Regular rate and rhythm without murmurs, rubs or gallops. RESPIRATORY: Breath sounds equal bilaterally, no wheezes rales or rhonchi. ABDOMEN: Soft, nontender. Normoactive bowel sounds all 4 quadrants. No guarding or rebound, rigidity, no mass EXTREMITIES: Normal range of motion, no clubbing or edema. Neurovascularly intact. 4th finger on patient's left hand shows a irregular laceration ulnar side there is a small chunk of the edge of the nail removed he has a small avulsion of tissue or defect just adjacent to the nail and then laceration of the skin crossing towards the pad of the finger that it was irregular. There was no bony exposure. Cap refills less than 2 seconds throughout the finger. Normal sensation throughout all 5 fingers. 2+ radial pulse. No active bleeding. Patient has full range of motion with no bony tenderness. Majority of nail is intact. NEUROLOGICAL: Cranial nerves II through XII grossly intact. Moving all extremities SKIN: Warm, dry, no petechiae, no rashes or lesions. Initial Vital Signs Initial Vital Signs: Vital Signs Temperature 98 F 11/30/24 15:41 Pulse Rate 56 L 11/30/24 15:41 Respiratory Rate 17 11/30/24 15:41 Blood Pressure 142/82 H 11/30/24 15:41 Pulse Oximetry 96 11/30/24 15:41 Oxygen Delivery Method Room Air 11/30/24 15:41 Procedures Laceration Repair Laceration 1: Site: upper extremity (finger) Side (If applicable): left Size (cm): 1 Description: irregular Depth: simple, single layer Local Anesthetic: lidocaine 2% Amount of anesthesia used (mL): 2.5 Pre-repair: wound explored, irrigated extensively and deep structures intact (small portion nail involved. small defect of tissue) Skin layer closed with: nylon Skin layer suture size: 4-0 Number of sutures: 5 Technique: simple, interrupted Course Orders Ordered: Discontinued Medications Cephalexin HCl (Cephalexin 250 Mg Capsule) 500 mg PO NOW ONE Stop: 12/01/24 01:12 Last Admin: 12/01/24 01:24 Dose: 500 mg Documented By: AI Diphtheria/Tetanus/Acell Pertussis (Tet,Diph,Pertuss(Acell),Vac/Pf 0.5 Ml Syringe) 0.5 ml IM .ONCE ONE Stop: 12/01/24 00:03 Last Admin: 12/01/24 00:49 Dose: 0.5 ml Documented By: DEIDRE Vital Signs Vital signs: Vital Signs - 8 hr 11/30/24 22:19 11/30/24 22:27 11/30/24 22:27 Pulse Rate 60 Respiratory Rate Blood Pressure 143/88 H Pulse Oximetry 97 97 11/30/24 22:30 Pulse Rate Respiratory Rate 16 Blood Pressure Pulse Oximetry 97 MDM - Wound/Laceration MDM Narrative Medical decision making narrative: Finger x-ray shows 4th digit laceration of the tip without underlying to fracture. Tetanus was updated. Patient's ring on that finger was removed. Laceration was repaired there is a small tissue defect but was pulled little bit closer together, small portion of the nail is missing but is distal and should grow back with time. Discussed wound care, return precautions. Does not appear to involve the bone but based on the nature of the incident patient was started on oral antibiotic. Discharge Plan Departure Patient Disposition: Home Clinical Impression: Finger laceration Instructions: DI for Laceration Repair -- Finger Activity Restrictions/Additional Instructions: Take oral antibiotics until completed. Prescription was sent to [facility] in [place]. Wound Care: Keep wound(s) clean and dry. Wash daily with soap and water only. Do not use over the counter products (alcohol or peroxide)on the wounds unless instructed by a physician. You can use triple antibiotic ointment to the affected area. If wound condition worsens (increased/expanding redness, developing fluid blisters, or worsening pain), either contact your doctor for an urgent re-assessment , or return to the Emergency Department. Return to the ED, urgent care, or visit a primary care doctor for removal of sutures in 7-10 days. Return if fever greater than 100.4 Fahrenheit, increased swelling, increasing pain or worsening symptoms such as increased discharge or spreading redness. Prescriptions: No Action gabapentin 600 mg tablet See Rx Instructions .ROUTE .COMPLEX Qty: 360 2RF Dose Instruction: TAKE 2 TABLETS BY MOUTH THREE TIMES DAILY Rx Instructions: TAKE 2 TABLETS BY MOUTH THREE TIMES DAILY pantoprazole [Protonix] 40 mg tablet,delayed release (DR/EC) 40 mg PO BID Qty: 60 11RF Rx Instructions: Take one tablet by mouth twice a day. Referrals: Minh Camejo DO [Primary Care Provider, Family Practice] Stand Alone Forms: Patient Portal/API/Survey
[2024-12-01] VITALS: BP 143/71; PULSE 69; RESP 20; O2SAT 96
--- NOTE | 2024-12-01 | DI.RAD.S_ITS ---
PROCEDURE: XR FINGER LT MIN 2V INDICATIONS: L finger 4th table saw injury TECHNIQUE: AP hand, 2 views of the 4th finger(s) acquired. COMPARISON: None. FINDINGS/IMPRESSION: 4th digit laceration at the tip, without underlying tuft fracture. Dictated by: Rosalino Moses M.D. on 12/01/2024 at 0:24 Approved by: Rosalino Moses M.D. on 12/01/2024 at 0:25
[2024-12-01 00:30] VITALS: PULSE 58; O2SAT 96
[2024-12-01] MEDS: TET,DIPH,PERTUSS(ACELL),VAC/PF 0.5 ML SYRINGE IM (00:49)
[2024-12-01 01:00] VITALS: BP 160/83; PULSE 62; RESP 16; O2SAT 95
[2024-12-01] MEDS: cephALEXin 250 MG CAPSULE 500 MG PO (01:24)
== END 2024-12-01 01:34 | disposition home or self-care (01) ==
PROVIDERS: Emergency Provider Emergency Medicine; Family Provider Family Medicine; PCP Family Medicine
DX: S61.215A Laceration without foreign body of left ring finger without damage to nail, initial encounter (principal); W27.0XXA Contact with workbench tool, initial encounter; Z23 Encounter for immunization
CPT/HCPCS: 12001; 73140; 90471; 99283; 90715

== ENCOUNTER → 2025-01-01 15:28 | Outpatient (CLI) | payer MEDICARE, OTHER, SELFPAY ==
--- NOTE | 2025-01-01 15:31 | DI.RAD.S_ITS ---
PROCEDURE: XR KNEE RT 3V INDICATIONS: worsening R knee pain TECHNIQUE: 3 views of the knee were acquired. COMPARISON: [facility], , XR KNEE RT 3V, 08/27/2019, 13:22. FINDINGS: Bones: No fractures or dislocations. No suspicious bony lesions. Moderate to severe joint space loss most pronounced at the medial compartment. Tricompartmental osteophytosis. Soft tissues: No joint effusion. No suspicious soft tissue calcifications. IMPRESSION: Severe right knee DJD most pronounced at the medial compartment. Degenerative changes progressed compared to 2019. Dictated by: Papo Bautista M.D. on 01/02/2025 at 13:15 Approved by: Papo Bautista M.D. on 01/02/2025 at 13:18
[2025-01-01 17:19] LABS: Add Manual Diff / Slide Review NO; Hematocrit 42.1 % (41-53); Hemoglobin 14.2 g/dL (13.5-17.5); Lymphocytes Absolute Auto 1500 /uL (1100-4500); Mean Corpuscular HGB Conc 33.8 % (30-36); Mean Corpuscular Hemoglobin 30.7 PG (26-34); Mean Corpuscular Volume 91.0 fL (80-100); Platelet Count 245 X10^3/uL (150-400)
[2025-01-01 18:23] LABS: Alanine Aminotransferase 17 IU/L (<50); Albumin 4.4 g/dL (3.5-5.0); Albumin Globulin Ratio 1.6 (1.0-2.8); Alkaline Phosphatase 63 U/L (38-126); Blood Urea Nitrogen 18 mg/dL (9-20); Calcium 9.4 mg/dL (8.4-10.2); Carbon Dioxide 27 mmol/L (22-32); Chloride 103 mmol/L (98-107); Estimated Glomerular Filt Rate > 60 mL/min (>60); Globulin 2.8 g/dL (1.7-4.1); Glucose 93 mg/dL (70-99); HEMOLYSIS < 15 (0-50); Lipase 59 U/L (23-300); Potassium 4.2 mmol/L (3.4-5.1); Sodium 138 mmol/L (137-145); Total Protein 7.2 g/dL (6.3-8.2)
== END ==
PROVIDERS: PCP Family Medicine; Referring Provider Family Medicine; Visit Provider Family Medicine
DX: M25.569 Pain in unspecified knee (principal); K57.32 Diverticulitis of large intestine without perforation or abscess without bleeding; M17.11 Unilateral primary osteoarthritis, right knee
CPT/HCPCS: 36415; 73562; 80053; 83690; 85025; 85651